=== PATIENT | male | born 1945 | race Caucasian/White ===

== ENCOUNTER → 2021-02-06 | Outpatient (CLI) | payer MEDICARE | END | disposition home or self-care (01) | LOC: RAD 15:31 | PROVIDERS: ATTEND Orthopaedic Surgery | DX: M71.22 Synovial cyst of popliteal space [Baker], left knee (principal); R22.42 Localized swelling, mass and lump, left lower limb; R09.89 Other specified symptoms and signs involving the circulatory and respiratory systems; Z96.652 Presence of left artificial knee joint ==